=== PATIENT | female | born 1995 | race African-American/Black ===

== ENCOUNTER 2016-12-16 09:55 | Inpatient (IN) | payer OTHER ==
[2016-12-16 11:27] VITALS: BMI 23.0
--- NOTE | 2016-12-16 16:31 | HP ---
Admission [facility] Chief Complaint: 21 yo woman here for rehab - recently incarcerated (released 12/13/16) and she wishes to stay sober. History of using alcohol, marijuana and cocaine. Allergies/Adverse Reactions: Allergies Allergy/AdvReac Type Severity Reaction Status Date / Time No Known Allergies Allergy Verified 12/16/16 16:16 Exam Limitations: No Limitations - Ebola screening Have you been sick,other than usual withdrawal symptoms: No - Review of Systems Constitutional: Malaise, Weakness EENT: reports: No Symptoms Reported Respiratory: reports: No Symptoms reported Cardiac: reports: No Symptoms Reported GI: reports: No Symptoms Reported : reports: No Symptoms Reported Musculoskeletal: reports: No Symptoms Reported Integumentary: reports: No Symptoms Reported Neuro: reports: No Symptoms reported Endocrine: reports: No Symptoms Reported Hematology: reports: No Symptoms Reported Psychiatric: reports: Mood/Affect Appropiate, Orientated x3, Anxious Other Systems: Reviewed and Negative Patient History - Patient Medical History Hx Anemia: No Hx Asthma: No Hx Chronic Obstructive Pulmonary Disease (COPD): No Hx Cancer: No Hx Cardiac Disorders: No Hx Congestive Heart Failure: No Hx Hypertension: No Hx Hypercholesterolemia: No Hx Pacemaker: No HX Cerebrovascular Accident: No Hx Seizures: No Hx Dementia: No Hx Diabetes: No Hx Gastrointestinal Disorders: No Hx Liver Disease: No Hx Genitourinary Disorders: No Hx Sexually Transmitted Disorders: Yes Hx Renal Disease (ESRD): No Hx Thyroid Disease: No Hx Human Immunodeficiency Virus (HIV): No Hx Hepatitis C: No Hx Depression: Yes Hx Suicide Attempt: No Hx Bipolar Disorder: No - Patient Surgical History Past Surgical History: No - PPD History Previous Implant?: Yes Documented Results: Negative w/o proof PPD to be Administered?: Yes - Reproductive History Patient is a Female of Child Bearing Age (11 -55 yrs old): Yes - Smoking Cessation Smoking history: Current every day smoker Have you smoked in the past 12 months: Yes Aproximately how many cigarettes per day: 10 Hx Chewing Tobacco Use: No Initiated information on smoking cessation: Yes 'Breaking Loose' booklet given: 12/16/16 (give on floor) - Substance & Tx. History Hx Alcohol Use: Yes Hx Substance Use: Yes Substance Use Type: Alcohol, Cocaine, Marijuana Hx Substance Use Treatment: Yes (detox, rehab) - Substances Abused Alcohol Route: Oral Frequency: Daily Amount used: 1 pint Age of first use: 15 Date of Last Use: 12/15/16 Cocaine Route: Inhalation Frequency: 3-6 times per week Amount used: $50 Age of first use: 20 Date of Last Use: 12/15/16 Marijuana/Hashish Frequency: 3-6 times per week Amount used: $20 Age of first use: 15 Date of Last Use: 12/14/16 Alcohol-vodka Route: Oral Frequency: 1-3 times last 30 days Amount used: 1 pt. Age of first use: 15 Date of Last Use: 12/15/16 Family Disease History - Family Disease History Family Disease History: Other: Father (alive, healthy, etoh), Mother (alive, healthy), Brother (alive, healthy), Sister (alive, healthy) Admission Physical Exam [facility] - Vital Signs Vital Signs: Vital Signs - 24 hr 12/16/16 11:24 Temperature 98.5 F Pulse Rate 86 Respiratory 20 Rate Blood Pressure 128/78 - Physical General Appearance: Yes: Nourished, Appropriately Dressed, Mild Distress HEENTM: Yes: Normal ENT Inspection, Normal Voice, Pharynx Normal Respiratory: Yes: Normal Breath Sounds, No Respiratory Distress Neck: Yes: No masses,lesions,Nodules Breast: Yes: Breast Exam Deferred Cardiology: Yes: Regular Rhythm, Regular Rate Abdominal: Yes: Soft Genitourinary: Yes: Within Normal Limits Back: Yes: Normal Inspection Musculoskeletal: Yes: full range of Motion, Gait Steady Extremities: Yes: Normal Range of Motion, Non-Tender Neurological: Yes: Fully Oriented, Alert, Motor Strength 5/5, Normal Mood/Affect , Normal Response Integumentary: Yes: Normal Color, Warm Lymphatic: Yes: Within Normal Limits - Diagnostic (1) EtOH dependence Current Visit: Yes Status: Chronic Qualifiers: Substance use status: in remission Qualified Code(s): F10.21 - Alcohol dependence, in remission (2) Marijuana dependence Current Visit: Yes Status: Chronic (3) Nicotine dependence Current Visit: Yes Status: Chronic Qualifiers: Nicotine product type: cigarettes Substance use status: uncomplicated Qualified Code(s): F17.210 - Nicotine dependence, cigarettes, uncomplicated Cleared for Admission [facility] - Detox or Rehab Claeared for Rehab Admission: Yes [facility] Breath Alcohol Content Breath Alcohol Content: 0 Urine Drug Screen - Results Drug Screen Negative: No Urine Drug Screen Results: THC-Marijuana, PENNIE-Cocaine
[2016-12-16] MEDS ORDERED: MAGNESIUM CITRATE 300 ML BOTTLE PO PRN (16:38)
[2016-12-16] MEDS ORDERED: guaiFENesin/D-METHORPHAN HB 10 ML UNIT-DOSE CUPS PO PRN (16:38)
[2016-12-16] MEDS ORDERED: P-EPHED 60MG/TRIPROLIDI 2.5MG TABLET PO PRN (16:38)
[2016-12-16] MEDS ORDERED: MAGNESIUM HYDROX 2400MG/30ML ORAL SUSPENSION 30 ML CUP PO PRN (16:38)
[2016-12-16] MEDS ORDERED: ACETAMINOPHEN 325 MG TABLET (FP) PO PRN (16:38)
[2016-12-16] MEDS ORDERED: MENTHOL/PHENOL 1 EACH UD MM PRN (16:38)
[2016-12-16] MEDS ORDERED: diphenhydrAMINE HCL 50 MG CAPSULE PO PRN (16:38)
[2016-12-16] MEDS ORDERED: IBUPROFEN 400 MG TABLET (FP) PO PRN (16:38)
[2016-12-16] MEDS ORDERED: NICOTINE POLACRILEX 2 MG GUM BC PRN (16:38)
[2016-12-16] MEDS ORDERED: hydrOXYzine PAMOATE 50 MG CAPSULE (FP) PO PRN (16:38)
[2016-12-16] MEDS ORDERED: MAG HYDROX/AL HYDROX/SIMETH 30 ML UNIT-DOSE CUP PO PRN (16:38)
[2016-12-16] MEDS ORDERED: LOPERAMIDE HCL 2 MG CAPSULE PO PRN (16:38)
[2016-12-16] MEDS ORDERED: TUBERCULIN PPD 5 TU/0.1ML SYRINGE (IN PATIENT USE ONLY) ID ONE (18:15)
[2016-12-16] MEDS: NICOTINE 14 MG/24 HOURS TOPICAL PATCH TD SCH (19:11)
[2016-12-16 21:15] LABS: URINE APPEARANCE SLCLOUDY; URINE BILIRUBIN NEGATIVE (NEGATIVE); URINE BLOOD NEGATIVE (NEGATIVE); URINE COLOR YELLOW; URINE GLUCOSE (UA) NEGATIVE (NEGATIVE); URINE KETONE NEGATIVE (NEGATIVE); URINE NITRITE NEGATIVE (NEGATIVE); URINE PROTEIN NEGATIVE (NEGATIVE); URINE UROBILINOGEN NEGATIVE mg/dL (0.2-1.0)
[2016-12-16 21:17] LABS: URINE LEUK ESTERASE 3+ (NEGATIVE)
[2016-12-16 21:55] LABS: URINE BACTERIA MODERATE /hpf (NONE SEEN); URINE MUCUS FEW; URINE RBC 1 /hpf (0-3); URINE WBC 7 /hpf (3-5)
[2016-12-16] MEDS: THIAMINE HCL 100 MG TABLET (FP) PO SCH (22:20)
--- NOTE | 2016-12-17 06:42 | HP ---
Psychiatrist Admission - Data Date of interview: 12/17/16 Admission source: [facility] Identifying data: This is the first [facility] admission for this 21 years old single Black female, unemployed with no source of income, domiciled living with her mother Medical History: Significant for history of treatment for Chlamydia. Smokes 12 cigarettes daily Psychiatric History: Denies history of previous psychiatric treatment Physical/Sexual Abuse/Trauma History: Denies history of emotional, physical or sexual abuse as well as DV relationship Additional Comment: Reports history of 3-4 misdemeanor arrests. Denies being on probation at present Vital Signs: Vital Signs - 24 hr 12/16/16 12/17/16 11:24 00:30 Temperature 98.5 F Pulse Rate 86 Respiratory 20 18 Rate Blood Pressure 128/78 Allergies/Adverse Reactions: Allergies Allergy/AdvReac Type Severity Reaction Status Date / Time No Known Allergies Allergy Verified 12/16/16 16:16 Date of last physical exam: 12/16/16 Concur with the findings of this exam: Yes - Substance Abuse/Tx History Hx Alcohol Use: Yes Hx Substance Use: Yes Substance Use Type: Alcohol (Started drinking alcohol at age 15, consumes one pint of loquor daily. Last drink on 12/15/16), Cocaine (Started using cocaine at age 20, consumes$50 worth 306 times weekly. Last used on 12/15/16), Marijuana ( Started smoking marijuana at age 15, consumes $20 worth 3-6 times weekly. Last smoked on 12/14/16) Hx Substance Use Treatment: Yes (one previous inpt detox & one inpt rehab([facility])) - Admission Criteria Previous failed treatment: Yes Poor recovery environment: Yes Comorbidities: Yes Lacks judgement: Yes Mental Status Exam - Mental Status Exam Alert and Oriented to: Place, Person Cognitive Function: Fair Patient Appearance: Well Groomed Mood: Anxious Affect: Constricted Patient Behavior: Cooperative Speech Pattern: Clear Voice Loudness: Normal Thought Process: Intact Thought Disorder: Not Present Hallucinations: Denies Suicidal Ideation: Denies Homicidal Ideation: Denies Insight/Judgement: Fair Sleep: Fair Appetite: Fair Muscle strength/Tone: Normal Gait/Station: Normal Psychiatric Findings - Problem List ([place] 1, 2,3) (1) Alcohol dependence Current Visit: Yes Status: Chronic Qualifiers: Substance use status: in remission Qualified Code(s): F10.21 - Alcohol dependence, in remission (2) Cocaine dependence Current Visit: Yes Status: Acute (3) Cannabis dependence Current Visit: Yes Status: Chronic (4) Nicotine dependence Current Visit: Yes Status: Chronic Qualifiers: Nicotine product type: cigarettes Substance use status: uncomplicated Qualified Code(s): F17.210 - Nicotine dependence, cigarettes, uncomplicated - Initial Treatment Plan Initial Treatment Plan: Monitor progress
[2016-12-17] MEDS: PRENATAL VITAMINS W/ FOLIC ACID TABLET (FP) PO SCH (10:03)
[2016-12-17] MEDS: NICOTINE 14 MG/24 HOURS TOPICAL PATCH TD SCH (10:03)
--- NOTE | 2016-12-17 10:23 | EKG ---
Test Reason : Blood Pressure : / mmHG Vent. Rate : 095 BPM Atrial Rate : 095 BPM P-R Int : 218 ms QRS Dur : 086 ms QT Int : 358 ms P-R-T Axes : -04 084 060 degrees QTc Int : 449 ms SINUS RHYTHM WITH 1ST DEGREE A-V BLOCK POSSIBLE ANTERIOR INFARCT , AGE UNDETERMINED ABNORMAL ECG NO PREVIOUS ECGS AVAILABLE Confirmed by MD RASHIDA, ERIN ([id number]) on 12/17/2016 10:23:22 AM Referred By: Confirmed By:ERIN FIELD MD
[2016-12-17 10:24] LABS: MCH 28.3 pg (25.7-33.7); MCHC 33.2 g/dl (32.0-36.0); MEAN CELL VOLUME 85.4 fl (80-96); MEAN PLT VOLUME 7.8 fl (7.5-11.1); PLATELET COUNT 256 K/MM3 (134-434); RDW 13.3 % (11.6-15.6); WHITE BLOOD COUNT 6.9 K/mm3 (4.0-10.0)
[2016-12-17 10:37] LABS: ALBUMIN 3.9 g/dl (3.4-5.0); ANION GAP 5 (8-16); CALCIUM 8.8 mg/dL (8.5-10.1); CO2 31 mmol/L (21-32); GLUCOSE,RANDOM 85 mg/dL (74-106)
[2016-12-17 10:45] LABS: ALK PHOS 51 U/L (45-117); BILIRUBIN,TOTAL 0.8 mg/dL (0.2-1.0); CREATININE 0.9 mg/dL (0.55-1.02); SGOT/AST 10 U/L (15-37); SGPT/ALT 18 U/L (12-78); TOT PROT 7.5 g/dl (6.4-8.2)
[2016-12-17 13:09] LABS: SICKLE CELL SCREEN NEGATIVE (NEGATIVE)
[2016-12-17 14:45] LABS: HIV 1 & 2 AB NEGATIVE; HIV 1 AGp24 NEGATIVE
[2016-12-17] MEDS: THIAMINE HCL 100 MG TABLET (FP) PO SCH (21:22)
[2016-12-18] MEDS: PRENATAL VITAMINS W/ FOLIC ACID TABLET (FP) PO SCH (09:36)
[2016-12-18] MEDS: NICOTINE 14 MG/24 HOURS TOPICAL PATCH TD SCH (09:36)
[2016-12-18] MEDS: THIAMINE HCL 100 MG TABLET (FP) PO SCH (21:12)
[2016-12-19 07:06] VITALS: TEMP 97.8
[2016-12-19] MEDS: NICOTINE 14 MG/24 HOURS TOPICAL PATCH TD SCH (09:42)
[2016-12-19] MEDS: PRENATAL VITAMINS W/ FOLIC ACID TABLET (FP) PO SCH (09:42)
[2016-12-19] MEDS: THIAMINE HCL 100 MG TABLET (FP) PO SCH (21:32)
[2016-12-20 07:23] VITALS: BP 118/77; PULSE 73
[2016-12-20] MEDS: NICOTINE 14 MG/24 HOURS TOPICAL PATCH TD SCH (10:08)
[2016-12-20] MEDS: PRENATAL VITAMINS W/ FOLIC ACID TABLET (FP) PO SCH (10:08)
== END 2016-12-20 12:25 | disposition left against medical advice (07) | DRG 770 ==
LOC: YASAS 09:55 → Y3E 16:26
PROVIDERS: ADMIT Psychiatry & Neurology Psychiatry; ATTEND Psychiatry & Neurology Psychiatry
PROC: HZ42ZZZ Group Counseling for Substance Abuse Treatment, Cognitive-Behavioral (ICD-10-PCS; principal; 2016-12-16)
DX: F10.20 Alcohol dependence, uncomplicated (principal); F14.20 Cocaine dependence, uncomplicated; F12.20 Cannabis dependence, uncomplicated; F17.210 Nicotine dependence, cigarettes, uncomplicated
CPT/HCPCS: 36415; 80053; 81003; 81015; 85027; 85660; 86593; 87389; 93005; 93010